=== PATIENT | female | born 1970 | race Caucasian/White ===

== ENCOUNTER 2018-03-18 18:27 | Inpatient (IN) | payer SELFPAY ==
[~2018-03-18] VITALS: Ht 149.9 cm; Wt 69.8 kg
[2018-03-18 18:38] VITALS: PULSE 108; RESP 18; TEMP 99.6; O2SAT 97
[2018-03-18 19:13] VITALS: TEMP 99.6
[2018-03-18 19:19] VITALS: BP 147/85; PULSE 100; RESP 16
[2018-03-18] MEDS ORDERED: AMPICILLIN-SULBACTAM INJ 3 GM in SODIUM CHLORIDE 0.9% INJ 100 ML IV ONE (19:30)
[2018-03-18] MEDS ORDERED: RABIES IMMUNE GLOBULIN INJ 300 UNITS/2 ML VIAL IM ONE (19:45)
[2018-03-18] MEDS ORDERED: RABIES VACCINE HUMAN DIPL CELL 2.5 UNITS/ML SYRINGE IM ONE (19:45)
[2018-03-18] MEDS ORDERED: MORPHINE SULFATE 4 MG/ML INJ IV PUSH ONE (19:45)
--- NOTE | 2018-03-18 19:46 | PD ---
HPI Chief Complaint: Bite or Sting Time Seen by Provider: 19:04 Travel History International Travel<30 days: No Contact w/Intl Traveler<30days: No History of Present Illness HPI pt was attacked by a feral cat 24 hrs ago and cat unknown to pt, possible bite as well as multiple scratch crocekr to her left anterior tib fib lower aspect , now cellulitis and swelling and pain . pt applied topical hydrogen peroxide and isopropyl alcohol at first and then topical bacitracin ointment without relieving the infectious process that has gotten worse over 24 hrs , tetanus is UP TO DATE, no on PO antibiotic , pain 10/10 when touched severe . PFSH Past Medical History Diminished Hearing: Yes (BILATERAL) ?: Not : 6 Para: 3 Miscarriage: 3 Tubal Ligation: Yes Past Surgical History Section: Yes (X2) Oral Surgery: Yes (WISDOM TEETH) Social History Alcohol Use: Yes (3 BEERS DAY) Tobacco Use: Yes (ONE PPD FOR 15 YEARS) Substance Use: Yes Allergies-Medications (Allergen,Severity, Reaction): Coded Allergies: latex (Verified Allergy, Intermediate, 03/18/18) Reported Meds & Prescriptions Reported Meds & Active Scripts Active Review of Systems Except as stated in HPI: all other systems reviewed are Neg Musculoskeletal: Positive: Myalgias, Arthralgias, Pain (redness swelling bite crocker to lower left tibial area 10 cm long x 5 cm wide) Physical Exam Narrative GENERAL: non toxic appearance but has uncomfortable pain appearance SKIN: bite and scratch crocker to anterior tib fib area,,,. EYES: Pupils equal and round. No scleral icterus. No injection or drainage. ENT: No nasal bleeding or discharge. Mucous membranes pink and moist. NECK: Trachea midline. No JVD. CARDIOVASCULAR: Regular rate and rhythm. RESPIRATORY: No accessory muscle use. Clear to auscultation. Breath sounds equal bilaterally. GASTROINTESTINAL: Abdomen soft, non-tender, nondistended. Hepatic and splenic margins not palpable. MUSCULOSKELETAL: Extremities lower left leg 10 cm x 6 cm with multiple scratch jeronimo eschars and few puncture r edema. No obvious deformities. NEUROLOGICAL: Awake and alert. No obvious cranial nerve deficits. Motor grossly within normal limits. Five out of 5 muscle strength in the arms and legs. Normal speech. PSYCHIATRIC: Appropriate mood and affect; insight and judgment normal. Data Data Last Documented VS Vital Signs Date Time Temp Pulse Resp B/P (MAP) Pulse Ox O2 Delivery O2 Flow Rate FiO2 03/18/18 19:19 100 16 147/85 (105) 03/18/18 19:13 99.6 03/18/18 18:38 97 Room Air Orders Orders Ampicillin-Sulbactam Inj (Unasyn Inj) (03/18/18 19:30) Complete Blood Count With Diff (03/18/18 19:26) Blood Culture (03/18/18 19:26) Comprehensive Metabolic Panel (03/18/18 19:26) Morphine Inj (Morphine Inj) (03/18/18 19:45) Rabies Immune Globulin Inj (Hyperrab S/D (03/18/18 20:00) Rabies Vaccine Chick Emb Inj (Rabavert I (03/18/18 21:00) Sodium Chlor 0.9% 1000 Ml Inj (Ns 1000 M (03/18/18 21:15) Hydromorphone Pf Inj (Dilaudid Pf Inj) (03/18/18 22:00) Lorazepam Inj (Ativan Inj) (03/18/18 22:00) Admit Order (Ed Use Only) (03/18/18 23:20) Labs Laboratory Tests Test 03/18/18 19:32 White Blood Count 13.6 TH/MM3 Red Blood Count 3.82 MIL/MM3 Hemoglobin 13.3 GM/DL Hematocrit 36.6 % Mean Corpuscular Volume 95.7 FL Mean Corpuscular Hemoglobin 34.8 PG Mean Corpuscular Hemoglobin Concent 36.4 % Red Cell Distribution Width 13.4 % Platelet Count 307 TH/MM3 Mean Platelet Volume 7.7 FL Neutrophils (%) (Auto) 75.0 % Lymphocytes (%) (Auto) 18.0 % Monocytes (%) (Auto) 5.2 % Eosinophils (%) (Auto) 0.7 % Basophils (%) (Auto) 1.1 % Neutrophils # (Auto) 10.2 TH/MM3 Lymphocytes # (Auto) 2.4 TH/MM3 Monocytes # (Auto) 0.7 TH/MM3 Eosinophils # (Auto) 0.1 TH/MM3 Basophils # (Auto) 0.1 TH/MM3 CBC Comment AUTO DIFF Differential Comment AUTO DIFF CONFIRMED Blood Urea Nitrogen 20 MG/DL Creatinine 0.96 MG/DL Random Glucose 131 MG/DL Total Protein 7.6 GM/DL Albumin 3.5 GM/DL Calcium Level 8.3 MG/DL Alkaline Phosphatase 64 U/L Aspartate Amino Transf (AST/SGOT) 77 U/L Alanine Aminotransferase (ALT/SGPT) 52 U/L Total Bilirubin 0.8 MG/DL Sodium Level 135 MEQ/L Potassium Level 4.3 MEQ/L Chloride Level 101 MEQ/L Carbon Dioxide Level 16.0 MEQ/L Anion Gap 18 MEQ/L Estimat Glomerular Filtration Rate 62 ML/MIN [facility] Medical Decision Making Medical Screen Exam Complete: Yes Emergency Medical Condition: Yes Differential Diagnosis cat scatch reaction vs cellulitis vs rabies exposure from feral cat that could have been exposed to raccoon or bat of skunk, unprovoked attack as per pt Narrative Course cellulitis spreading and not responding to topical antibiotics and possible rabies exposure from unknown feral cat, pt given IV Unasyn and rabies IgG active immunity around the scratch and bite crocker and rabies vaccine passive immunity , remainder of IgG IM in gluteal and deltiod opposite arm from Vaccination admit for continued cellulitis treatment IV Diagnosis Primary Impression: Cellulitis of leg, left Additional Impression: Cat bite involving extremity Admitting Information Admitting Physician Requests: Observation Singh Castro MD Mar 18, 2018 19:45
[2018-03-18 19:53] LABS: AUTOMATED NEUTROPHIL # 10.2 TH/MM3 (1.8-7.7); BASOPHIL # 0.1 TH/MM3 (0-0.2); BASOPHIL % 1.1 % (0.0-2.0); EOSINOPHIL # 0.1 TH/MM3 (0-0.4); EOSINOPHIL % 0.7 % (0.0-4.0); HEMATOCRIT 36.6 % (35.0-46.0); HEMOGLOBIN 13.3 GM/DL (11.6-15.3); LYMPHOCYTE # 2.4 TH/MM3 (1.0-4.8); MEAN CELL VOLUME 95.7 FL (80.0-100.0); MEAN CORPUSCULAR HEMOGLOBIN 34.8 PG (27.0-34.0); MEAN PLATELET VOLUME 7.7 FL (7.0-11.0); MONO % 5.2 % (0.0-8.0); MONOCYTE # 0.7 TH/MM3 (0-0.9); PLATELET COUNT 307 TH/MM3 (150-450); RED BLOOD COUNT 3.82 MIL/MM3 (4.00-5.30); RED CELL DISTRIBUTION WIDTH 13.4 % (11.6-17.2); WHITE BLOOD COUNT 13.6 TH/MM3 (4.0-11.0)
[2018-03-18] MEDS ORDERED: RABIES IMMUNE GLOBULIN INJ 1,500 UNITS/10 ML VIAL IM ONE (20:00)
[2018-03-18 20:07] LABS: MEAN CORPUSCULAR HGB CONC 36.4 % (32.0-36.0)
[2018-03-18 20:13] LABS: ALKALINE PHOSPHATASE 64 U/L (45-117); TOTAL BILIRUBIN ADULT 0.8 MG/DL (0.2-1.0)
[2018-03-18] MEDS ORDERED: RABIES VACCINE CHICK EMB INJ 2.5 UNITS/ML SYR IM ONE (21:00)
[2018-03-18 21:09] LABS: CHLORIDE 101 MEQ/L (98-107)
[2018-03-18 21:10] LABS: ALBUMIN 3.5 GM/DL (3.4-5.0); BLOOD UREA NITROGEN 20 MG/DL (7-18); CALCIUM 8.3 MG/DL (8.5-10.1); CREATININE 0.96 MG/DL (0.50-1.00); GLOMERULAR FILTRATION RATE 62 ML/MIN (>89); GLUCOSE,RANDOM 131 MG/DL (74-106); SODIUM (NA) 135 MEQ/L (136-145); TOTAL PROTEIN 7.6 GM/DL (6.4-8.2)
[2018-03-18] MEDS ORDERED: SODIUM CHLOR 0.9% 1000 ML INJ 1,000 ML IV ONE (21:15)
[2018-03-18 21:34] LABS: ALT (GPT) 52 U/L (10-53); AST (GOT) 77 U/L (15-37)
[2018-03-18] MEDS ORDERED: HYDROmorphone HCL PF 2 MG/ML VIAL IV PUSH ONE (22:00)
[2018-03-18] MEDS ORDERED: LORazepam 2 MG/ML VIAL IV PUSH ONE (22:00)
[2018-03-18] MEDS: SODIUM CHLOR 0.9% 1000 ML INJ 1,000 ML IV SCH (23:42)
[2018-03-18 23:44] VITALS: PULSE 102; RESP 16
[2018-03-18] MEDS ORDERED: ACETAMINOPHEN 325 MG TAB PO PRN (23:45)
[2018-03-18] MEDS ORDERED: SODIUM CHLORIDE 0.9% FLUSH 10 ML FLUSH IV FLUSH PRN (23:45)
[2018-03-18] MEDS ORDERED: ACETAMINOPHEN/HYDROcodone 325 MG/5 MG TAB PO PRN (23:45)
[2018-03-18] MEDS ORDERED: NALOXONE HCL 0.4 MG/ML AMP IV PUSH PRN (23:45)
[2018-03-19] MEDS ORDERED: LORazepam 2 MG/ML VIAL IV PUSH PRN ×4 (00:30)
[2018-03-19] MEDS ORDERED: FLUMAZENIL 0.5 MG/5 ML VIAL IV PUSH PRN (00:30)
[2018-03-19] MEDS ORDERED: LORazepam 2 MG TAB PO PRN (00:30)
[2018-03-19] MEDS ORDERED: LORazepam 1 MG TAB PO PRN (00:30)
--- NOTE | 2018-03-19 00:34 | HHI.HP ---
[facility] Service [facility] Primary Care Physician No Primary Care Physician Admission Diagnosis femi bite cellulitis treated for rabies exposure Diagnoses: Travel History International Travel<30 Days: No Contact w/Intl Traveler <30 Da: No History of Present Illness 47-year-old female with no significant past medical history presents to the emergency department for the evaluation of a cat bite. The patient reports approximately 8:30 PM on the night of 03/17 she was attacked by a feral cat. She reports the cat bit her and scratched her on her left lower extremity. She cleaned the wounds with soap and water and hydrogen peroxide and noticed minimal swelling that evening. The following day, the patient noticed that her leg was extremely swollen and exquisitely tender to touch. It is surrounded with erythema and there are multiple puncture wounds on the anterior portion of the left lower extremity. She denies any fever/chills. No chest pain or shortness of breath. No abdominal pain. No nausea/vomiting/diarrhea. Review of Systems Except as stated in HPI: all other systems reviewed are Neg Past Family Social History Past Medical History None Past Surgical History Right arm Right wrist 2 Reported Medications Reported Meds & Active Scripts Active Allergies: Coded Allergies: latex (Verified Allergy, Intermediate, 03/18/18) Family History Patient was adopted Social History Smokes approximately 1 pack per day. Drinks approximately 1/2 pint of alcohol daily. Denies illicit drugs. Physical Exam Vital Signs Vital Signs Date Time Temp Pulse Resp B/P (MAP) Pulse Ox O2 Delivery O2 Flow Rate FiO2 03/18/18 23:44 102 16 03/18/18 19:19 100 16 147/85 (105) 03/18/18 19:13 99.6 03/18/18 18:38 99.6 108 18 97 Room Air Physical Exam GENERAL: female lying in bed SKIN: Left lower extremity erythematous from ankle to knee with multiple puncture wounds present on the anterior aspect of the leg. No drainage noted. No areas of fluctuance. HEAD: Atraumatic. Normocephalic. No temporal or scalp tenderness. EYES: Pupils equal round and reactive. Extraocular motions intact. No scleral icterus. No injection or drainage. ENT: Nose without bleeding, purulent drainage or septal hematoma. Throat without erythema, tonsillar hypertrophy or exudate. Uvula midline. Airway patent. NECK: Trachea midline. No JVD or lymphadenopathy. Supple, nontender, no meningeal signs. CARDIOVASCULAR: Regular rate and rhythm without murmurs, gallops, or rubs. RESPIRATORY: Clear to auscultation. Breath sounds equal bilaterally. No wheezes , rales, or rhonchi. GASTROINTESTINAL: Abdomen soft, non-tender, nondistended. No hepato-splenomegaly , or palpable masses. No guarding. MUSCULOSKELETAL: Extremities without clubbing, cyanosis, or edema. No joint tenderness, effusion, or edema noted. No calf tenderness. NEUROLOGICAL: Awake and alert. Cranial nerves II through XII intact. Motor and sensory grossly within normal limits. Normal speech. Laboratory Laboratory Tests Test 03/18/18 19:32 White Blood Count 13.6 Red Blood Count 3.82 Hemoglobin 13.3 Hematocrit 36.6 Mean Corpuscular Volume 95.7 Mean Corpuscular Hemoglobin 34.8 Mean Corpuscular Hemoglobin Concent 36.4 Red Cell Distribution Width 13.4 Platelet Count 307 Mean Platelet Volume 7.7 Neutrophils (%) (Auto) 75.0 Lymphocytes (%) (Auto) 18.0 Monocytes (%) (Auto) 5.2 Eosinophils (%) (Auto) 0.7 Basophils (%) (Auto) 1.1 Neutrophils # (Auto) 10.2 Lymphocytes # (Auto) 2.4 Monocytes # (Auto) 0.7 Eosinophils # (Auto) 0.1 Basophils # (Auto) 0.1 CBC Comment AUTO DIFF Differential Comment AUTO DIFF CONFIRMED Blood Urea Nitrogen 20 Creatinine 0.96 Random Glucose 131 Total Protein 7.6 Albumin 3.5 Calcium Level 8.3 Alkaline Phosphatase 64 Aspartate Amino Transf (AST/SGOT) 77 Alanine Aminotransferase (ALT/SGPT) 52 Total Bilirubin 0.8 Sodium Level 135 Potassium Level 4.3 Chloride Level 101 Carbon Dioxide Level 16.0 Anion Gap 18 Estimat Glomerular Filtration Rate 62 Date/Time Source Procedure Growth Status 03/18/18 19:35 Blood Peripheral Aerobic Blood Culture Pending Received 03/18/18 19:35 Blood Peripheral Anaerobic Blood Culture Pending Received Result Diagram: 03/18/18193103/18/181931 Caprini VTE Risk Assessment Caprini VTE Risk Assessment: No/Low Risk (score <= 1) Caprini Risk Assessment Model Point Value = 1 Point Value = 2 Point Value = 3 Point Value = 5 Age 41-60 Minor surgery BMI > 25 kg/m2 Swollen legs Varicose veins or History of unexplained or recurrent spontaneous Oral contraceptives or hormone replacement Sepsis (< 1 month) Serious lung disease, including pneumonia (< 1 month) Abnormal pulmonary function Acute myocardial infarction Congestive heart failure (< 1 month) History of inflammatory bowel disease Medical patient at bed rest Age 61-74 Arthroscopic surgery Major open surgery (> 45 min) Laparoscopic surgery (> 45 min) Malignancy Confined to bed (> 72 hours) Immobilizing plaster cast Central venous access Age >= 75 History of VTE Family history of VTE Factor V Leiden Prothrombin [id number] Lupus anticoagulant Anticardiolipin antibodies Elevated serum homocysteine Heparin-induced thrombocytopenia Other congenital or acquired thrombophilia Stroke (< 1 month) Elective arthroplasty Hip, pelvis, or leg fracture Acute spinal cord injury (< 1 month) Prophylaxis Regimen Total Risk Factor Score Risk Level Prophylaxis Regimen 0-1 Low Early ambulation 2 Moderate Order ONE of the following: *Sequential Compression Device (SCD) *Heparin 5000 units SQ BID 3-4 Higher Order ONE of the following medications: *Heparin 5000 units SQ TID *Enoxaparin/Lovenox 40 mg SQ daily (WT < 150 kg, CrCl > 30 mL/min) *Enoxaparin/Lovenox 30 mg SQ daily (WT < 150 kg, CrCl > 10-29 mL/min) *Enoxaparin/Lovenox 30 mg SQ BID (WT < 150 kg, CrCl > 30 mL/min) AND/OR *Sequential Compression Device (SCD) 5 or more Highest Order ONE of the following medications: *Heparin 5000 units SQ TID (Preferred with Epidurals) *Enoxaparin/Lovenox 40 mg SQ daily (WT < 150 kg, CrCl > 30 mL/min) *Enoxaparin/Lovenox 30 mg SQ daily (WT < 150 kg, CrCl > 10-29 mL/min) *Enoxaparin/Lovenox 30 mg SQ BID (WT < 150 kg, CrCl > 30 mL/min) AND *Sequential Compression Device (SCD) Assessment and Plan Assessment and Plan Assessment/plan: 1. Cat bite Tetanus up-to-date Given rabies IgG and vaccine in the emergency department Patient will need repeat vaccine on day 3 Unasyn 2. Alcohol abuse Thiamine/folate/multivitamins CIWA protocol Monitor for signs of withdrawal FEN Heart healthy diet Electrolytes: Monitor and replete as needed Physician Certification 2 Midnight Certification Type: Admission for Inpatient Services Order for Inpatient Services The services are ordered in accordance with Medicare regulations or non- Medicare payer requirements, as applicable. In the case of services not specified as inpatient-only, they are appropriately provided as inpatient services in accordance with the 2-midnight benchmark. Estimated LOS (days): 2 2 days is the estimated time the patient will need to remain in the hospital, assuming treatment plan goals are met and no additional complications. Post-Hospital Plan: Not yet determined Maria Isabel Jackson MD Mar 19, 2018 00:34
[2018-03-19 01:20] VITALS: BP 115/58; PULSE 82; RESP 16; O2SAT 98
[2018-03-19] MEDS: AMPICILLIN-SULBACTAM INJ 3 GM in SODIUM CHLORIDE 0.9% INJ 100 ML IV SCH ×4 (01:31→20:43)
[2018-03-19 05:09] LABS: AUTOMATED NEUTROPHIL # 6.9 TH/MM3 (1.8-7.7); BASOPHIL % 0.4 % (0.0-2.0); EOSINOPHIL # 0.1 TH/MM3 (0-0.4); EOSINOPHIL % 1.2 % (0.0-4.0); HEMATOCRIT 33.9 % (35.0-46.0); HEMOGLOBIN 11.5 GM/DL (11.6-15.3); LYMPH % 22.7 % (9.0-44.0); LYMPHOCYTE # 2.2 TH/MM3 (1.0-4.8); MEAN CELL VOLUME 95.4 FL (80.0-100.0); MEAN CORPUSCULAR HEMOGLOBIN 32.4 PG (27.0-34.0); MEAN CORPUSCULAR HGB CONC 33.9 % (32.0-36.0); MEAN PLATELET VOLUME 7.2 FL (7.0-11.0); MONO % 3.9 % (0.0-8.0); MONOCYTE # 0.4 TH/MM3 (0-0.9); NEUT % 71.8 % (16.0-70.0); PLATELET COUNT 259 TH/MM3 (150-450); RED BLOOD COUNT 3.55 MIL/MM3 (4.00-5.30); RED CELL DISTRIBUTION WIDTH 13.5 % (11.6-17.2); WHITE BLOOD COUNT 9.6 TH/MM3 (4.0-11.0)
[2018-03-19 05:31] LABS: BICARBONATE 22.3 MEQ/L (21.0-32.0); CALCIUM 8.1 MG/DL (8.5-10.1); CREATININE 0.58 MG/DL (0.50-1.00)
[2018-03-19 06:34] VITALS: BP 107/55; PULSE 82; RESP 17; O2SAT 98
[2018-03-19] MEDS: FOLIC ACID 1 MG TAB PO SCH (07:48)
[2018-03-19] MEDS: SODIUM CHLORIDE 0.9% FLUSH 10 ML FLUSH IV FLUSH SCH ×2 (07:48→20:44)
[2018-03-19] MEDS: ACETAMINOPHEN/HYDROcodone 325 MG/10 MG TAB PO PRN ×4 (07:49→20:42)
[2018-03-19] MEDS: MULTIVITAMINS/MINERALS THERAPEUTIC TAB PO SCH (07:49)
[2018-03-19] MEDS: THIAMINE HCL 100 MG TAB PO SCH (07:49)
[2018-03-19 08:00] VITALS: BP 145/100; PULSE 81; RESP 21; TEMP 98.5; O2SAT 98
[2018-03-19] MEDS: SODIUM CHLOR 0.9% 1000 ML INJ 1,000 ML IV SCH ×2 (08:08→20:44)
[2018-03-19 12:00] VITALS: BP 136/70; PULSE 76; RESP 18; TEMP 98.6; O2SAT 97
[2018-03-19 16:00] VITALS: BP_SYST 133; BP_SYST 141; BP_DIAS 102; BP_DIAS 78; PULSE 75; PULSE 87; RESP 12; RESP 22; TEMP 98.3; TEMP 98.5; O2SAT 96; O2SAT 97
--- NOTE | 2018-03-19 17:59 | PD.ID.CON ---
History of Present Illness Service ID Consult Requested By Reason for Consult Evaluation and mment of Cat bite,scratch related left leg cellulitis and Post exposure prophylaxis. Primary Care Physician No Primary Care Physician Diagnoses: History of Present Illness is a 47 y/o CF with no significant past medical history presents to the emergency department for the evaluation of a cat bite. The patient reports approximately 8:30 PM on the night of 03/17 she was attacked by a feral cat. She reports the cat bit her and scratched her on her left lower extremity. She reports she was BBQing out on her patio when the cat approached her for food when she tried to shoo the cat away he got angry and clasped her with paws and bit her on left leg. She cleaned the wounds with soap and water and hydrogen peroxide and noticed minimal swelling that evening. The following day, the patient noticed that her leg was extremely swollen and exquisitely tender to touch. It is surrounded with erythema and there are multiple puncture wounds on the anterior portion of the left lower extremity. She denies any fever/ chills. No chest pain or shortness of breath. No abdominal pain. No nausea/ vomiting/diarrhea. Patient reports she was given an injection in each deltoid and also injections to infiltrate around her left leg wounds. Review of Systems ROS Limitations: Poor Historian Past Family Social History Allergies: Coded Allergies: latex (Verified Allergy, Intermediate, 03/18/18) Past Medical History None Past Surgical History Right arm surgery Right wrist surgery 2 Reported Medications Reported Meds & Active Scripts Active Active Ordered Medications Current Medications Medications (Trade) Dose Ordered Sig/Gladys Route Start Time Stop Time Status Last Admin Sodium Chloride 1,000 ml @ 100 mls/hr Q10H IV 03/18/18 23:32 03/20/18 05:32 (NS Flush) 2 ml UNSCH PRN IV FLUSH 03/18/18 23:45 (NS Flush) 2 ml BID IV FLUSH 03/19/18 09:00 03/19/18 20:44 (Tylenol) 650 mg Q4H PRN PO 03/18/18 23:45 (Narcan Inj) 0.4 mg UNSCH PRN IV PUSH 03/18/18 23:45 Ampicillin Sodium/ Sulbactam Sodium 3 gm/Sodium Chloride 100 ml @ 200 mls/hr Q6H IV 03/19/18 01:30 03/20/18 01:31 (Lyons 5-325 Mg) 1 tab Q4H PRN PO 03/18/18 23:45 03/19/18 02:38 (Lyons 10-325 Mg) 1 tab Q4H PRN PO 03/18/18 23:45 03/20/18 06:34 (Folate) 1 mg DAILY PO 03/19/18 09:00 03/24/18 08:59 03/19/18 07:48 (Vitamin B1) 100 mg DAILY PO 03/19/18 09:00 03/19/18 07:49 (Theragran M Tab) 1 tab DAILY PO 03/19/18 09:00 03/24/18 08:59 03/19/18 07:49 (Romazicon Inj) 0.2 mg Q1M PRN IV PUSH 03/19/18 00:30 (Ativan) 1 mg Q4H PRN PO 03/19/18 00:30 (Ativan Inj) 1 mg Q4H PRN IV PUSH 03/19/18 00:30 (Ativan) 2 mg Q2H PRN PO 03/19/18 00:30 (Ativan Inj) 2 mg Q2H PRN IV PUSH 03/19/18 00:30 (Ativan Inj) 2 mg Q1H PRN IV PUSH 03/19/18 00:30 (Ativan Inj) 2 mg Q15M PRN IV PUSH 03/19/18 00:30 Family History reviewed and NC Social History Smokes approximately 1 pack per day. Drinks approximately 1/2 pint of alcohol daily. Denies illicit drugs. Physical Exam Vital Signs Vital Signs Date Time Temp Pulse Resp B/P (MAP) Pulse Ox O2 Delivery O2 Flow Rate FiO2 03/19/18 16:00 98.5 87 12 133/78 (96) 97 03/19/18 12:00 98.6 76 18 136/70 (92) 97 03/19/18 08:00 98.5 81 21 145/100 (115) 98 03/19/18 06:34 82 17 107/55 (72) 98 Nasal Cannula 2.00 03/19/18 01:20 82 16 115/58 (77) 98 Nasal Cannula 2.00 03/18/18 23:44 102 16 03/18/18 19:19 100 16 147/85 (105) 03/18/18 19:13 99.6 03/18/18 18:38 99.6 108 18 97 Room Air Physical Exam GENERAL: This is a well-nourished, well-developed patient, in no apparent distress. SKIN: No rashes, ecchymoses or lesions. Cool and dry. HEAD: Atraumatic. Normocephalic. No temporal or scalp tenderness. EYES: Pupils equal round and reactive. Extraocular motions intact. No scleral icterus. No injection or drainage. ENT: Nose without bleeding, purulent drainage or septal hematoma. Throat without erythema, tonsillar hypertrophy or exudate. Uvula midline. Airway patent. NECK: Trachea midline. No JVD or lymphadenopathy. Supple, nontender, no meningeal signs. CARDIOVASCULAR: Regular rate and rhythm without murmurs, gallops, or rubs. RESPIRATORY: Clear to auscultation. Breath sounds equal bilaterally. No wheezes , rales, or rhonchi. GASTROINTESTINAL: Abdomen soft, non-tender, nondistended. No hepato-splenomegaly , or palpable masses. No guarding. MUSCULOSKELETAL: Left leg erythema, swelling, scratch and ? bite jeronimo. NEUROLOGICAL: Awake and alert. Cranial nerves II through XII intact. Motor and sensory grossly within normal limits. Five out of 5 muscle strength in all muscle groups. Normal speech. Pleasant cooperative pt. Laboratory Laboratory Tests Test 03/18/18 19:32 03/19/18 04:32 White Blood Count 13.6 9.6 Red Blood Count 3.82 3.55 Hemoglobin 13.3 11.5 Hematocrit 36.6 33.9 Mean Corpuscular Volume 95.7 95.4 Mean Corpuscular Hemoglobin 34.8 32.4 Mean Corpuscular Hemoglobin Concent 36.4 33.9 Red Cell Distribution Width 13.4 13.5 Platelet Count 307 259 Mean Platelet Volume 7.7 7.2 Neutrophils (%) (Auto) 75.0 71.8 Lymphocytes (%) (Auto) 18.0 22.7 Monocytes (%) (Auto) 5.2 3.9 Eosinophils (%) (Auto) 0.7 1.2 Basophils (%) (Auto) 1.1 0.4 Neutrophils # (Auto) 10.2 6.9 Lymphocytes # (Auto) 2.4 2.2 Monocytes # (Auto) 0.7 0.4 Eosinophils # (Auto) 0.1 0.1 Basophils # (Auto) 0.1 0.0 CBC Comment AUTO DIFF DIFF FINAL Differential Comment AUTO DIFF CONFIRMED Blood Urea Nitrogen 20 13 Creatinine 0.96 0.58 Random Glucose 131 107 Total Protein 7.6 Albumin 3.5 Calcium Level 8.3 8.1 Alkaline Phosphatase 64 Aspartate Amino Transf (AST/SGOT) 77 Alanine Aminotransferase (ALT/SGPT) 52 Total Bilirubin 0.8 Sodium Level 135 138 Potassium Level 4.3 3.6 Chloride Level 101 104 Carbon Dioxide Level 16.0 22.3 Anion Gap 18 12 Estimat Glomerular Filtration Rate 62 111 Date/Time Source Procedure Growth Status 03/18/18 19:35 Blood Peripheral Aerobic Blood Culture - Preliminary NO GROWTH IN 1 DAY Resulted 03/18/18 19:35 Blood Peripheral Anaerobic Blood Culture - Preliminary NO GROWTH IN 1 DAY Resulted Result Diagram: 03/19/18 0432 03/19/18 0432 Assessment and Plan Assessment and Plan Feral cat bite and scratches. High risk for rabies. Left leg cellulitis Recs Continue Unasyn IV Recd rabies vaccine and Immune globulin. Will determine with pharmacy company name brands so appropriate discharge regimen for vaccines can be planned through the health dept. Will follow along dw pt and RN Autumn Man MD Mar 19, 2018 17:59
[2018-03-19 20:00] VITALS: BP 152/78; PULSE 75; RESP 14; TEMP 98.4; O2SAT 98
[2018-03-19] MEDS ORDERED: IOHEXOL 350 MG/ML 10 ML VIAL (for RAD DIAG) IVCONTRAST ONE (21:34)
--- NOTE | 2018-03-19 21:37 | RADRPT ---
EXAM DATE: 03/19/2018 9:33 PM EDT AGE/SEX: 47 years / Female INDICATIONS: Left lower leg pain and swelling. Patient was attack by a feral cat 2 days ago. CLINICAL DATA: This is the patient's initial encounter. Patient reports that signs and symptoms have been present for 2 days and indicates a pain score of 10/10. MEDICAL/SURGICAL HISTORY: None. None. RADIATION DOSE: 7.12 CTDI (mGy) COMPARISON: None. TECHNIQUE: Multiple contiguous axial images were acquired using a multirow detector CT scanner af ter intravenous administration of 100 ml Omnipaque 350 (iohexol) nonionic water-soluble contrast as a single exam dose. Multiplanar reconstruction was performed in the sagittal and coronal planes. Us ing automated exposure control and adjustment of the mA and/or kV according to patient size, radiatio n dose was kept as low as reasonably achievable to obtain optimal diagnostic quality images. DICOM f ormat image data is available electronically for review and comparison. FINDINGS: Bones: The bony structures are intact. No fracture is seen. Joints: No significant arthropathy seen. Soft Tissues: Soft tissue swelling particularly along the medial malleolus no radiopaque foreign body . No soft tissue mass is seen. Other: No foreign bodies seen. Post Contrast: No abnormal areas of enhancement are seen in the marrow or soft tissues. CONCLUSION: 1. Soft tissue swelling particularly around the medial malleolus. No radiopaque foreign body observe d. Electronically signed by: Hayden العلي MD 03/19/2018 9:36 PM EDT
[2018-03-20] VITALS: BP 148/75; PULSE 83; RESP 14; TEMP 98.4; O2SAT 98
[2018-03-20] MEDS: ACETAMINOPHEN/HYDROcodone 325 MG/10 MG TAB PO PRN ×5 (01:31→20:26)
[2018-03-20] MEDS: AMPICILLIN-SULBACTAM INJ 3 GM in SODIUM CHLORIDE 0.9% INJ 100 ML IV SCH ×3 (01:31→13:46)
[2018-03-20 04:00] VITALS: BP 120/69; PULSE 70; RESP 12; TEMP 98.1; O2SAT 98
[2018-03-20] MEDS: SODIUM CHLOR 0.9% 1000 ML INJ 1,000 ML IV SCH ×2 (05:32→13:30)
[2018-03-20 08:00] VITALS: BP 143/67; PULSE 70; RESP 17; TEMP 98.1; O2SAT 97
[2018-03-20] MEDS: MULTIVITAMINS/MINERALS THERAPEUTIC TAB PO SCH (08:01)
[2018-03-20] MEDS: FOLIC ACID 1 MG TAB PO SCH (08:01)
[2018-03-20] MEDS: THIAMINE HCL 100 MG TAB PO SCH (08:01)
[2018-03-20] MEDS: SODIUM CHLORIDE 0.9% FLUSH 10 ML FLUSH IV FLUSH SCH ×2 (08:05→21:00)
[2018-03-20 12:00] VITALS: BP 119/58; PULSE 78; RESP 17; TEMP 98.3; O2SAT 96
[2018-03-20 16:05] VITALS: BP 120/68; TEMP 98
[2018-03-20] MEDS ORDERED: DOCUSATE SODIUM 50 MG/SENNA 8.6 MG TAB PO ONE (16:15)
[2018-03-20] MEDS ORDERED: MAGNESIUM HYDROXIDE SUSP 30 ML CUP PO ONE (16:15)
--- NOTE | 2018-03-20 16:23 | HHI.PR ---
Subjective Remarks Patient says she is feeling all right, however left leg pain continues, not improving. Objective Vital Signs Date Time Temp Pulse Resp B/P (MAP) Pulse Ox O2 Delivery O2 Flow Rate FiO2 03/20/18 16:05 98.0 120/68 (85) 03/20/18 12:00 98.3 78 17 119/58 (78) 96 03/20/18 08:00 98.1 70 17 143/67 (92) 97 03/20/18 04:00 98.1 70 12 120/69 (86) 98 03/20/18 00:00 98.4 83 14 148/75 (99) 98 03/19/18 20:00 98.4 75 14 152/78 (102) 98 I/O 03/19/18 03/19/18 03/19/18 03/20/18 03/20/18 03/20/18 07:00 15:00 23:00 07:00 15:00 23:00 Intake Total 650 ml 1040 ml Balance 650 ml 1040 ml Intake Oral 480 ml IV Total 650 ml 560 ml # Voids 5 Result Diagram: 03/19/18 0432 03/19/18 043 Objective Remarks GENERAL: She is lying in bed. Appears comfortable. SKIN: Warm and dry. HEAD: Normocephalic. EYES: No scleral icterus. No injection or drainage. NECK: Supple, trachea midline. No JVD. CARDIOVASCULAR: Regular rate and rhythm without murmurs, gallops, or rubs. RESPIRATORY: Breath sounds equal bilaterally. No accessory muscle use. GASTROINTESTINAL: Abdomen soft, non-tender, nondistended. MUSCULOSKELETAL: No cyanosis, or edema. Left leg with punctate lesions over the anterior riley, left foot. Very faint erythema, however edema of entire left leg. Patient able to dorsiflex left foot. BACK: Nontender without obvious deformity. No CVA tenderness. A/P Assessment and Plan // Cat bite Tetanus up-to-date Given rabies IgG and vaccine in the emergency department Patient will need repeat vaccine on day 3 Unasyn = Appreciate ID consult. ID to arrange rabies vaccine. Slightly worsening today. Discussed with ID. //Alcohol abuse Thiamine/folate/multivitamins [facility] protocol Monitor for signs of withdrawal Discharge Planning Pending clinical improvement. Bob Marquez MD Mar 20, 2018 16:23
[2018-03-20] MEDS ORDERED: ASP: Other exception documentation: ( ) PRN (17:00)
[2018-03-20] MEDS ORDERED: PHARMACY INFORMATION XX PRN (17:00)
--- NOTE | 2018-03-20 17:06 | HHI.IDPN ---
Subjective Subjective Remarks is a 47 y/o CF with no significant past medical history presents to the emergency department for the evaluation of a cat bite. The patient reports approximately 8:30 PM on the night of 03/17 she was attacked by a feral cat. She reports the cat bit her and scratched her on her left lower extremity. She reports she was BBQing out on her patio when the cat approached her for food when she tried to shoo the cat away he got angry and clasped her with paws and bit her on left leg. She cleaned the wounds with soap and water and hydrogen peroxide and noticed minimal swelling that evening. The following day, the patient noticed that her leg was extremely swollen and exquisitely tender to touch. It is surrounded with erythema and there are multiple puncture wounds on the anterior portion of the left lower extremity. She denies any fever/ chills. No chest pain or shortness of breath. No abdominal pain. No nausea/ vomiting/diarrhea. Patient reports she was given an injection in each deltoid and also injections to infiltrate around her left leg wounds. Overnight events reviewed No fevers no rash No diarrhea Reports worsening left leg pain and swelling despite elevation of leg. Also reports feeling of scratchiness and worms. 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 Antibiotics Unasyn IV Lines Lines ok Past Medical History reviewed Allergies: Coded Allergies: latex (Verified Allergy, Intermediate, 03/18/18) Objective . Vital Signs Date Time Temp Pulse Resp B/P (MAP) Pulse Ox O2 Delivery O2 Flow Rate FiO2 03/20/18 16:05 98.0 120/68 (85) 03/20/18 12:00 98.3 78 17 119/58 (78) 96 03/20/18 08:00 98.1 70 17 143/67 (92) 97 03/20/18 04:00 98.1 70 12 120/69 (86) 98 03/20/18 00:00 98.4 83 14 148/75 (99) 98 03/19/18 20:00 98.4 75 14 152/78 (102) 98 . Laboratory Tests Test 03/18/18 19:32 03/19/18 04:32 White Blood Count 13.6 TH/MM3 9.6 TH/MM3 Red Blood Count 3.82 MIL/MM3 3.55 MIL/MM3 Hemoglobin 13.3 GM/DL 11.5 GM/DL Hematocrit 36.6 % 33.9 % Mean Corpuscular Volume 95.7 FL 95.4 FL Mean Corpuscular Hemoglobin 34.8 PG 32.4 PG Mean Corpuscular Hemoglobin Concent 36.4 % 33.9 % Red Cell Distribution Width 13.4 % 13.5 % Platelet Count 307 TH/MM3 259 TH/MM3 Mean Platelet Volume 7.7 FL 7.2 FL Neutrophils (%) (Auto) 75.0 % 71.8 % Lymphocytes (%) (Auto) 18.0 % 22.7 % Monocytes (%) (Auto) 5.2 % 3.9 % Eosinophils (%) (Auto) 0.7 % 1.2 % Basophils (%) (Auto) 1.1 % 0.4 % Neutrophils # (Auto) 10.2 TH/MM3 6.9 TH/MM3 Lymphocytes # (Auto) 2.4 TH/MM3 2.2 TH/MM3 Monocytes # (Auto) 0.7 TH/MM3 0.4 TH/MM3 Eosinophils # (Auto) 0.1 TH/MM3 0.1 TH/MM3 Basophils # (Auto) 0.1 TH/MM3 0.0 TH/MM3 CBC Comment AUTO DIFF DIFF FINAL Differential Comment AUTO DIFF CONFIRMED Laboratory Tests Test 03/18/18 19:32 03/19/18 04:32 Blood Urea Nitrogen 20 MG/DL 13 MG/DL Creatinine 0.96 MG/DL 0.58 MG/DL Random Glucose 131 MG/DL 107 MG/DL Total Protein 7.6 GM/DL Albumin 3.5 GM/DL Calcium Level 8.3 MG/DL 8.1 MG/DL Alkaline Phosphatase 64 U/L Aspartate Amino Transf (AST/SGOT) 77 U/L Alanine Aminotransferase (ALT/SGPT) 52 U/L Total Bilirubin 0.8 MG/DL Sodium Level 135 MEQ/L 138 MEQ/L Potassium Level 4.3 MEQ/L 3.6 MEQ/L Chloride Level 101 MEQ/L 104 MEQ/L Carbon Dioxide Level 16.0 MEQ/L 22.3 MEQ/L Anion Gap 18 MEQ/L 12 MEQ/L Estimat Glomerular Filtration Rate 62 ML/MIN 111 ML/MIN Microbiology Date/Time Source Procedure Growth Status 03/18/18 19:35 Blood Peripheral Aerobic Blood Culture - Preliminary NO GROWTH IN 2 DAYS Resulted 03/18/18 19:35 Blood Peripheral Anaerobic Blood Culture - Preliminary NO GROWTH IN 2 DAYS Resulted 03/18/18 19:30 Blood Peripheral Aerobic Blood Culture - Preliminary NO GROWTH IN 2 DAYS Resulted 03/18/18 19:30 Blood Peripheral Anaerobic Blood Culture - Preliminary NO GROWTH IN 2 DAYS Resulted Imaging Last Impressions Lower Extremity CT 03/19/18 0000 Signed Impressions: CONCLUSION: 1. Soft tissue swelling particularly around the medial malleolus. No radiopaqu e foreign body observed. Physical Exam GENERAL: This is a well-nourished, well-developed patient, in no apparent distress. SKIN: No rashes, ecchymoses or lesions. Cool and dry. HEAD: Atraumatic. Normocephalic. No temporal or scalp tenderness. EYES: Pupils equal round and reactive. Extraocular motions intact. No scleral icterus. No injection or drainage. ENT: Nose without bleeding, purulent drainage or septal hematoma. Throat without erythema, tonsillar hypertrophy or exudate. Uvula midline. Airway patent. NECK: Trachea midline. No JVD or lymphadenopathy. Supple, nontender, no meningeal signs. CARDIOVASCULAR: Regular rate and rhythm without murmurs, gallops, or rubs. RESPIRATORY: Clear to auscultation. Breath sounds equal bilaterally. No wheezes , rales, or rhonchi. GASTROINTESTINAL: Abdomen soft, non-tender, nondistended. No hepato-splenomegaly , or palpable masses. No guarding. MUSCULOSKELETAL: Left leg erythema, swelling, scratch and ? bite jeronimo. More induration and swelling now extending to medial aspect of left knee. NEUROLOGICAL: Awake and alert. Cranial nerves II through XII intact. Motor and sensory grossly within normal limits. Five out of 5 muscle strength in all muscle groups. Normal speech. Pleasant cooperative pt. Assessment & Plan Remarks Feral cat bite and scratches. High risk for rabies. Left leg cellulitis Patient has concern for generalized parasite and worm infection/infestation. No eosinophilia. Recs DC Unasyn IV Start Meropenem IV (ASP: non response to Unasyn IV for cat bite) Start Vanco IV for possible MRSA super infection. Recd rabies vaccine and Immune globulin. Will determine with pharmacy company name brands so appropriate discharge regimen for vaccines can be planned through the health dept. Stool O/P Peripheral smear to look for parasites. Will follow along dw pt and Autumn Brody MD Mar 20, 2018 17:06
[2018-03-20] MEDS ORDERED: Vancomycin Consult Pharmacy 1 EA OTHER SCH (17:15)
[2018-03-20 17:58] LABS: AUTOMATED NEUTROPHIL # 5.2 TH/MM3 (1.8-7.7); BASOPHIL % 0.5 % (0.0-2.0); EOSINOPHIL # 0.2 TH/MM3 (0-0.4); EOSINOPHIL % 2.8 % (0.0-4.0); HEMATOCRIT 34.1 % (35.0-46.0); HEMOGLOBIN 11.6 GM/DL (11.6-15.3); LYMPH % 19.8 % (9.0-44.0); LYMPHOCYTE # 1.5 TH/MM3 (1.0-4.8); MEAN CELL VOLUME 95.1 FL (80.0-100.0); MEAN CORPUSCULAR HEMOGLOBIN 32.3 PG (27.0-34.0); MEAN PLATELET VOLUME 7.4 FL (7.0-11.0); MONO % 6.8 % (0.0-8.0); MONOCYTE # 0.5 TH/MM3 (0-0.9); NEUT % 70.1 % (16.0-70.0); PLATELET COUNT 249 TH/MM3 (150-450); RED BLOOD COUNT 3.59 MIL/MM3 (4.00-5.30); RED CELL DISTRIBUTION WIDTH 13.5 % (11.6-17.2); WHITE BLOOD COUNT 7.3 TH/MM3 (4.0-11.0)
[2018-03-20] MEDS ORDERED: VANCOMYCIN INJ 1,250 MG in SODIUM CHLOR 0.9% 250 ML INJ 250 ML IV ONE (18:00)
[2018-03-20 18:30] LABS: BICARBONATE 28.3 MEQ/L (21.0-32.0); CREATININE 0.73 MG/DL (0.50-1.00)
[2018-03-20] MEDS: MEROPENEM INJ 500 MG in SODIUM CHLORIDE 0.9% INJ 100 ML IV SCH (18:30)
[2018-03-20 21:45] VITALS: BP 140/75; PULSE 77; RESP 17; TEMP 98.6; O2SAT 96
[2018-03-21] VITALS: BP 126/72; PULSE 66; RESP 16; TEMP 98; O2SAT 96
[2018-03-21] MEDS: ACETAMINOPHEN/HYDROcodone 325 MG/10 MG TAB PO PRN ×6 (01:29→23:04)
[2018-03-21] MEDS: MEROPENEM INJ 500 MG in SODIUM CHLORIDE 0.9% INJ 100 ML IV SCH ×3 (01:29→18:14)
[2018-03-21 04:40] VITALS: BP 125/65; PULSE 74; RESP 18; TEMP 98; O2SAT 97
[2018-03-21 08:37] VITALS: BP 137/73; PULSE 71; RESP 18; TEMP 98.1; O2SAT 96
[2018-03-21] MEDS: MULTIVITAMINS/MINERALS THERAPEUTIC TAB PO SCH (09:00)
[2018-03-21] MEDS: THIAMINE HCL 100 MG TAB PO SCH (09:00)
[2018-03-21] MEDS: FOLIC ACID 1 MG TAB PO SCH (09:00)
[2018-03-21] MEDS: SODIUM CHLORIDE 0.9% FLUSH 10 ML FLUSH IV FLUSH SCH ×2 (09:01→23:10)
[2018-03-21 11:43] VITALS: BP 117/64; PULSE 73; RESP 18; TEMP 98.3; O2SAT 96
[2018-03-21] MEDS ORDERED: VANCOMYCIN INJ 1,250 MG in SODIUM CHLOR 0.9% 250 ML INJ 250 ML IV SCH (12:00)
--- NOTE | 2018-03-21 13:06 | HHI.PR ---
Subjective Remarks Follow-up cat bite and scratch March 21, 2018-patient seen and examined, denies any significant left lower extremity pain. Currently afebrile. Patient has a lot of concerns regarding possible worm infestation Objective Vitals Vital Signs Date Time Temp Pulse Resp B/P (MAP) Pulse Ox O2 Delivery O2 Flow Rate FiO2 03/21/18 11:43 98.3 73 18 117/64 (81) 96 03/21/18 08:37 98.1 71 18 137/73 (94) 96 03/21/18 04:40 98.0 74 18 125/65 (85) 97 03/21/18 00:00 98.0 66 16 126/72 (90) 96 03/20/18 21:45 98.6 77 17 140/75 (96) 96 03/20/18 16:05 98.0 120/68 (85) I/O 03/20/18 03/20/18 03/20/18 03/21/18 03/21/18 03/21/18 07:00 15:00 23:00 07:00 15:00 23:00 Intake Total 1040 ml 1960 ml 825 ml 100 ml Balance 1040 ml 1960 ml 825 ml 100 ml Intake Oral 480 ml 1960 ml 825 ml IV Total 560 ml 100 ml # Voids 5 6 3 # Bowel Movements 0 0 Result Diagram: 03/20/18 1740 03/20/18 1740 Imaging Last Impressions Lower Extremity CT 03/19/18 0000 Signed Impressions: CONCLUSION: 1. Soft tissue swelling particularly around the medial malleolus. No radiopaqu e foreign body observed. Objective Remarks GENERAL: NAD SKIN: Warm and dry. HEAD: Normocephalic. EYES: No scleral icterus. No injection or drainage. NECK: Supple, trachea midline. No JVD or lymphadenopathy. CARDIOVASCULAR: Regular rate and rhythm without murmurs, gallops, or rubs. RESPIRATORY: Breath sounds equal bilaterally. No accessory muscle use. GASTROINTESTINAL: Abdomen soft, non-tender, nondistended. MUSCULOSKELETAL: No cyanosis, or edema. LLE with punctures wound with surrounding erythema; TTP BACK: Nontender without obvious deformity. No CVA tenderness. A/P Problem List: (1) Cat bite involving extremity (2) Worm infestation ICD Code: B83.9 - Helminthiasis, unspecified (3) Worms in stool ICD Code: B83.9 - Helminthiasis, unspecified (4) Cellulitis of leg, left ICD Code: L03.116 - Cellulitis of left lower limb Assessment and Plan 47-year-old female with Cat scratch disease from feral cat Cellulitis left lower extremity Currently on meropenem and vancomycin per ID pending culture reports Warm manifestation? Stool for ova and parasite pending Peripheral smear to look for parasites pending Alcohol abuse Continue with CIWA protocol, rally pack DVT prophylaxis: Heparin Alvin Moore MD Mar 21, 2018 13:06
[2018-03-21] MEDS ORDERED: RABIES VACCINE CHICK EMB INJ 2.5 UNITS/ML SYR IM ONE (19:15)
--- NOTE | 2018-03-21 19:45 | HHI.IDPN ---
Subjective Subjective Remarks is a 47 y/o CF with no significant past medical history presents to the emergency department for the evaluation of a cat bite. The patient reports approximately 8:30 PM on the night of 03/17 she was attacked by a feral cat. She reports the cat bit her and scratched her on her left lower extremity. She reports she was BBQing out on her patio when the cat approached her for food when she tried to shoo the cat away he got angry and clasped her with paws and bit her on left leg. She cleaned the wounds with soap and water and hydrogen peroxide and noticed minimal swelling that evening. The following day, the patient noticed that her leg was extremely swollen and exquisitely tender to touch. It is surrounded with erythema and there are multiple puncture wounds on the anterior portion of the left lower extremity. She denies any fever/ chills. No chest pain or shortness of breath. No abdominal pain. No nausea/ vomiting/diarrhea. Patient reports she was given an injection in each deltoid and also injections to infiltrate around her left leg wounds. Overnight events reviewed No fevers no rash No diarrhea Reports left leg is better less swelling and erythema. Also reports feeling of scratchiness and worms. 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 Antibiotics Meropenem IV Vanco IV Lines Lines ok Past Medical History reviewed Allergies: Coded Allergies: latex (Verified Allergy, Intermediate, 03/18/18) Objective . Vital Signs Date Time Temp Pulse Resp B/P (MAP) Pulse Ox O2 Delivery O2 Flow Rate FiO2 03/21/18 11:43 98.3 73 18 117/64 (81) 96 03/21/18 08:37 98.1 71 18 137/73 (94) 96 03/21/18 04:40 98.0 74 18 125/65 (85) 97 03/21/18 00:00 98.0 66 16 126/72 (90) 96 03/20/18 21:45 98.6 77 17 140/75 (96) 96 03/21/18 03/21/18 03/22/18 15:00 23:00 07:00 Intake Total 100 ml 350 ml Balance 100 ml 350 ml IV Total 100 ml 350 ml # Voids 3 # Bowel Movements 1 . Laboratory Tests Test 03/20/18 17:40 White Blood Count 7.3 TH/MM3 Red Blood Count 3.59 MIL/MM3 Hemoglobin 11.6 GM/DL Hematocrit 34.1 % Mean Corpuscular Volume 95.1 FL Mean Corpuscular Hemoglobin 32.3 PG Mean Corpuscular Hemoglobin Concent 34.0 % Red Cell Distribution Width 13.5 % Platelet Count 249 TH/MM3 Mean Platelet Volume 7.4 FL Neutrophils (%) (Auto) 70.1 % Lymphocytes (%) (Auto) 19.8 % Monocytes (%) (Auto) 6.8 % Eosinophils (%) (Auto) 2.8 % Basophils (%) (Auto) 0.5 % Neutrophils # (Auto) 5.2 TH/MM3 Lymphocytes # (Auto) 1.5 TH/MM3 Monocytes # (Auto) 0.5 TH/MM3 Eosinophils # (Auto) 0.2 TH/MM3 Basophils # (Auto) 0.0 TH/MM3 CBC Comment DIFF FINAL Differential Comment Blood Smear Pathologist Review Laboratory Tests Test 03/20/18 17:40 Blood Urea Nitrogen 9 MG/DL Creatinine 0.73 MG/DL Random Glucose 100 MG/DL Calcium Level 9.0 MG/DL Sodium Level 136 MEQ/L Potassium Level 3.9 MEQ/L Chloride Level 101 MEQ/L Carbon Dioxide Level 28.3 MEQ/L Anion Gap 7 MEQ/L Estimat Glomerular Filtration Rate 85 ML/MIN C-Reactive Protein 8.10 MG/DL Microbiology Date/Time Source Procedure Growth Status 03/21/18 14:39 Stool Stool Cyclospora Exam Pending Received 03/21/18 14:39 Stool Stool Cryptosporidium Exam Pending Received 03/21/18 14:39 Stool Stool Stool Pus (DUSTIN) Pending Received 03/21/18 14:39 Stool Stool Giardia Antigen (DUSTIN) Pending Received Imaging Last Impressions Lower Extremity CT 03/19/18 0000 Signed Impressions: CONCLUSION: 1. Soft tissue swelling particularly around the medial malleolus. No radiopaqu e foreign body observed. Physical Exam GENERAL: This is a well-nourished, well-developed patient, in no apparent distress. SKIN: No rashes, ecchymoses or lesions. Cool and dry. HEAD: Atraumatic. Normocephalic. No temporal or scalp tenderness. EYES: Pupils equal round and reactive. Extraocular motions intact. No scleral icterus. No injection or drainage. ENT: Nose without bleeding, purulent drainage or septal hematoma. Throat without erythema, tonsillar hypertrophy or exudate. Uvula midline. Airway patent. NECK: Trachea midline. No JVD or lymphadenopathy. Supple, nontender, no meningeal signs. CARDIOVASCULAR: Regular rate and rhythm without murmurs, gallops, or rubs. RESPIRATORY: Clear to auscultation. Breath sounds equal bilaterally. No wheezes , rales, or rhonchi. GASTROINTESTINAL: Abdomen soft, non-tender, nondistended. No hepato-splenomegaly , or palpable masses. No guarding. MUSCULOSKELETAL: Left leg erythema, swelling, scratch and ? bite jeronimo. More induration and swelling now extending to medial aspect of left knee. NEUROLOGICAL: Awake and alert. Cranial nerves II through XII intact. Motor and sensory grossly within normal limits. Five out of 5 muscle strength in all muscle groups. Normal speech. Pleasant cooperative pt. Assessment & Plan Remarks Feral cat bite and scratches. High risk for rabies. Left leg cellulitis Patient has concern for generalized parasite and worm infection/infestation. No eosinophilia. Recs Continue Meropenem IV (ASP: non response to Unasyn IV for cat bite) Continue Vanco IV for possible MRSA super infection. Rabies vaccine ordered for today (day 3) and day 7. Explained to patient the schedule needs to completed outpatient at health dept post discharge. Will request [employer] to help out. No peripheral smear eosinophilia. Stool studies pending. Peripheral smear to look for parasites pending. Patient seems a little preoccupied with fear of worm and parasite infestation. She reports she has a worm crawling in her throat. On exam NAD. From ID perspective I cannot offer any more workup for parasite infestation but certainly primary team can use their own discretion if patient agrees to get specialties such as GI, ENT and Pulm involved if deemed necessary. Consider outpatient psych consult for OCD if all workup negative. No self harm from her preoccupation at present time other than requesting additional workup. will follow along. dw pt and RN Will follow next on Friday. If any changes in the interim please call me sooner. Autumn Man MD Mar 21, 2018 19:45
[2018-03-21 20:00] VITALS: BP 113/63; PULSE 65; RESP 18; TEMP 98.5; O2SAT 95
[2018-03-21] MEDS: VANCOMYCIN 1,000 MG/NS 250 ML IV SCH ×2 (23:04)
[2018-03-21] MEDS: HEPARIN SODIUM - SQ 10,000 UNITS/ML VIAL SQ SCH (23:10)
[2018-03-22] VITALS: BP 137/64; PULSE 77; RESP 18; TEMP 98; O2SAT 95
[2018-03-22] MEDS: MEROPENEM INJ 500 MG in SODIUM CHLORIDE 0.9% INJ 100 ML IV SCH ×3 (02:21→18:01)
[2018-03-22] MEDS: ACETAMINOPHEN/HYDROcodone 325 MG/10 MG TAB PO PRN ×5 (03:05→20:58)
[2018-03-22 04:00] VITALS: BP 147/65; PULSE 74; RESP 18; TEMP 98; O2SAT 95
[2018-03-22] MEDS ORDERED: RABIES VACCINE CHICK EMB INJ 2.5 UNITS/ML SYR IM ONE (07:45)
[2018-03-22 08:48] LABS: CREATININE 0.53 MG/DL (0.50-1.00)
[2018-03-22 08:53] VITALS: BP 135/66; PULSE 67; RESP 18; TEMP 97.7; O2SAT 97
--- NOTE | 2018-03-22 10:00 | HHI.PR ---
Subjective Remarks patient feeling better pain improved afebrile Objective Vitals Vital Signs Date Time Temp Pulse Resp B/P (MAP) Pulse Ox O2 Delivery O2 Flow Rate FiO2 03/22/18 08:53 97.7 67 18 135/66 (89) 97 03/22/18 04:12 18 03/22/18 04:00 98.0 74 18 147/65 (92) 95 03/22/18 00:00 98.0 77 18 137/64 (88) 95 03/21/18 20:00 98.5 65 18 113/63 (80) 95 03/21/18 11:43 98.3 73 18 117/64 (81) 96 I/O 03/21/18 03/21/18 03/21/18 03/22/18 03/22/18 03/22/18 07:00 15:00 23:00 07:00 15:00 23:00 Intake Total 825 ml 100 ml 350 ml 350 ml Balance 825 ml 100 ml 350 ml 350 ml Intake Oral 825 ml IV Total 100 ml 350 ml 350 ml # Voids 3 3 4 # Bowel Movements 0 1 Result Diagram: 03/20/18 1740 03/22/18 0657 Imaging Last Impressions Lower Extremity CT 03/19/18 0000 Signed Impressions: CONCLUSION: 1. Soft tissue swelling particularly around the medial malleolus. No radiopaqu e foreign body observed. Objective Remarks awake and alert, no acute distress, afebrile anicteric lungs- no rales regular rhythm abdomen soft right LE- mild erythema, some superficial scratch crocker, no active drainage, no induration - per patient markedly improve from admission good peripheral pulses A/P Problem List: (1) Cat bite involving extremity (2) Worm infestation ICD Code: B83.9 - Helminthiasis, unspecified (3) Worms in stool ICD Code: B83.9 - Helminthiasis, unspecified (4) Cellulitis of leg, left ICD Code: L03.116 - Cellulitis of left lower limb Assessment and Plan 47-year-old female with Feral cath bite with Cellulitis left lower extremity- clinically improving Currently on meropenem and vancomycin per ID pending culture reports- negative so far rabies vaccine shots- scheduled doses per ID recommendation ? Worm manifestation patient has no complains- no diarrhea- good po Stool for ova and parasite pending Peripheral smear to look for parasites pending Alcohol abuse Continue with WA protocol, rally pack DVT prophylaxis: Heparin d/w patient- worried about DC meds/needs- assured her that we will ask CM assistance when cleared by ID for DC to assist with meds Mamadou Vincent MD Mar 22, 2018 10:00
[2018-03-22] MEDS: THIAMINE HCL 100 MG TAB PO SCH (10:14)
[2018-03-22] MEDS: HEPARIN SODIUM - SQ 10,000 UNITS/ML VIAL SQ SCH ×2 (10:14→20:57)
[2018-03-22] MEDS: MULTIVITAMINS/MINERALS THERAPEUTIC TAB PO SCH (10:15)
[2018-03-22] MEDS: FOLIC ACID 1 MG TAB PO SCH (10:15)
[2018-03-22] MEDS: SODIUM CHLORIDE 0.9% FLUSH 10 ML FLUSH IV FLUSH SCH ×2 (10:17→20:59)
[2018-03-22] MEDS: VANCOMYCIN 1,000 MG/NS 250 ML IV SCH ×2 (11:25)
[2018-03-22 12:35] VITALS: BP 136/78; PULSE 68; RESP 18; TEMP 98.7; O2SAT 96
[2018-03-22 16:30] VITALS: BP 119/76; PULSE 81; RESP 18; TEMP 98.2; O2SAT 96
[2018-03-22 20:00] VITALS: BP 124/76; PULSE 77; RESP 18; TEMP 99.2; O2SAT 95
[2018-03-22] MEDS ORDERED: PHARMACY ORDERED LAB ONE (23:45)
[2018-03-23] VITALS: BP 165/98; PULSE 82; RESP 18; TEMP 98; O2SAT 96
[2018-03-23] MEDS: VANCOMYCIN 1,000 MG/NS 250 ML IV SCH ×2 (00:29)
[2018-03-23] MEDS: ACETAMINOPHEN/HYDROcodone 325 MG/10 MG TAB PO PRN ×6 (00:42→23:00)
[2018-03-23 01:00] VITALS: BP 128/74; PULSE 81; RESP 18; TEMP 98.1; O2SAT 97
[2018-03-23] MEDS: MEROPENEM INJ 500 MG in SODIUM CHLORIDE 0.9% INJ 100 ML IV SCH ×3 (01:35→18:23)
[2018-03-23 04:00] VITALS: BP_SYST 113; BP_SYST 134; BP_DIAS 66; BP_DIAS 68; PULSE 66; RESP 18; TEMP 98; O2SAT 97
[2018-03-23 08:00] VITALS: BP 116/69; PULSE 71; RESP 16; TEMP 98.2; O2SAT 96
[2018-03-23] MEDS: SODIUM CHLORIDE 0.9% FLUSH 10 ML FLUSH IV FLUSH SCH ×2 (09:00→23:01)
--- NOTE | 2018-03-23 09:57 | HHI.PR ---
Subjective Remarks afebrile, po 100% - "good food" states leg feeling better- on prn pain meds no complains of abdominal pain, nausea or vomiting or diarrhea Objective Vitals Vital Signs Date Time Temp Pulse Resp B/P (MAP) Pulse Ox O2 Delivery O2 Flow Rate FiO2 03/23/18 06:36 18 03/23/18 04:00 98.0 66 18 113/68 (83) 97 03/23/18 01:00 98.1 81 18 128/74 (92) 97 03/23/18 00:00 98.0 82 18 165/98 (120) 96 03/22/18 20:00 99.2 77 18 124/76 (92) 95 03/22/18 16:30 98.2 81 18 119/76 (90) 96 03/22/18 12:35 98.7 68 18 136/78 (97) 96 I/O 03/22/18 03/22/18 03/22/18 03/23/18 03/23/18 03/23/18 07:00 15:00 23:00 07:00 15:00 23:00 Intake Total 350 ml 350 ml 250 ml Balance 350 ml 350 ml 250 ml IV Total 350 ml 350 ml 250 ml # Voids 4 3 Result Diagram: 03/20/18 1740 03/22/18 0657 Imaging Last Impressions Lower Extremity CT 03/19/18 0000 Signed Impressions: CONCLUSION: 1. Soft tissue swelling particularly around the medial malleolus. No radiopaqu e foreign body observed. Objective Remarks awake and alert, no acute distress, afebrile anicteric lungs- no rales regular rhythm abdomen soft right LE- erythema much improved , some superficial scratch crocker, no active drainage, swelling around scratched crocker improved good peripheral pulses, no calf swelling or tenderness A/P Problem List: (1) Cat bite involving extremity (2) Worm infestation ICD Code: B83.9 - Helminthiasis, unspecified (3) Worms in stool ICD Code: B83.9 - Helminthiasis, unspecified (4) Cellulitis of leg, left ICD Code: L03.116 - Cellulitis of left lower limb Assessment and Plan 47-year-old female with Feral cath bite with Cellulitis left lower extremity- clinically improving Currently on meropenem and vancomycin per ID pending culture reports- negative so far rabies vaccine shots- scheduled doses per ID recommendation day 7 dose- due - Worm manifestation + stool eosinophilia patient has no complains- no diarrhea- good po Stool for ova and parasite pending- no growth so far GI work up - colonoscopy- can be done as OP Alcohol abuse- counselled Continue with CIWA protocol, rally pack DVT prophylaxis: Heparin d/w patient- worried about DC meds/needs- assured her that we will ask CM assistance when cleared by ID for DC to assist with meds Mamadou Vincent MD Mar 23, 2018 09:57
[2018-03-23] MEDS: FOLIC ACID 1 MG TAB PO SCH (10:29)
[2018-03-23] MEDS: MULTIVITAMINS/MINERALS THERAPEUTIC TAB PO SCH (10:29)
[2018-03-23] MEDS: HEPARIN SODIUM - SQ 10,000 UNITS/ML VIAL SQ SCH ×2 (10:31→23:04)
[2018-03-23 12:00] VITALS: BP 160/79; PULSE 68; RESP 18; TEMP 98.9; O2SAT 94
[2018-03-23] MEDS: VANCOMYCIN INJ 1,250 MG in SODIUM CHLOR 0.9% 250 ML INJ 250 ML IV SCH (14:51)
[2018-03-23 16:00] VITALS: BP 116/55; PULSE 69; RESP 16; TEMP 98.5; O2SAT 95
[2018-03-23] MEDS ORDERED: ERTAPENEM SODIUM 1000 MG VIAL IV SCH (21:00)
[2018-03-23] MEDS ORDERED: ERTAPENEM 1,000 MG/NS 100 ML IV SCH ×2 (22:00)
[2018-03-24 00:20] VITALS: BP 129/72; PULSE 79; RESP 18; TEMP 98.4; O2SAT 96
[2018-03-24] MEDS: VANCOMYCIN INJ 1,250 MG in SODIUM CHLOR 0.9% 250 ML INJ 250 ML IV SCH ×2 (00:23→13:26)
[2018-03-24] MEDS: ACETAMINOPHEN/HYDROcodone 325 MG/10 MG TAB PO PRN ×3 (03:42→13:25)
[2018-03-24] MEDS: SODIUM CHLORIDE 0.9% FLUSH 10 ML FLUSH IV FLUSH SCH (08:29)
[2018-03-24] MEDS: THIAMINE HCL 100 MG TAB PO SCH (08:29)
[2018-03-24] MEDS: HEPARIN SODIUM - SQ 10,000 UNITS/ML VIAL SQ SCH (08:30)
[2018-03-24 08:39] VITALS: BP 131/68; PULSE 70; RESP 20; TEMP 98.5; O2SAT 97
--- NOTE | 2018-03-24 08:46 | HHI.PR ---
Subjective Remarks afebrile, feeling better wanting to go home "need to get out of here" no diarrhea, good po, no abdominal pain Objective Vitals Vital Signs Date Time Temp Pulse Resp B/P (MAP) Pulse Ox O2 Delivery O2 Flow Rate FiO2 03/24/18 04:42 18 03/24/18 00:20 98.4 79 18 129/72 (91) 96 03/23/18 16:00 98.5 69 16 116/55 (75) 95 03/23/18 12:00 98.9 68 18 160/79 (106) 94 I/O 03/23/18 03/23/18 03/23/18 03/24/18 03/24/18 03/24/18 07:00 15:00 23:00 07:00 15:00 23:00 Intake Total 250 ml Balance 250 ml IV Total 250 ml # Voids 3 Result Diagram: 03/20/18 1740 03/22/18 0657 Imaging Last Impressions Lower Extremity CT 03/19/18 0000 Signed Impressions: CONCLUSION: 1. Soft tissue swelling particularly around the medial malleolus. No radiopaqu e foreign body observed. Objective Remarks awake and alert, no acute distress, afebrile anicteric lungs- no rales regular rhythm abdomen soft right LE- erythema much improved , scratchedmarks/wounds superficial, dry, no surrounding induration good peripheral pulses, no calf swelling or tenderness A/P Problem List: (1) Cat bite involving extremity (2) Worm infestation ICD Code: B83.9 - Helminthiasis, unspecified (3) Worms in stool ICD Code: B83.9 - Helminthiasis, unspecified (4) Cellulitis of leg, left ICD Code: L03.116 - Cellulitis of left lower limb Assessment and Plan 47-year-old female with Feral cath bite with Cellulitis left lower extremity- clinically improving Currently on Invanz and vancomycin per ID - d/w pharmacy cultures- negative so far rabies IG vaccine shots- scheduled doses per ID recommendation day dose- 2nd dose due 03/25- 3rd dose- in 21 days can get it from health department- CM to assist will confirm with ID + stool eosinophilia patient has no complains- no diarrhea- good po Stool for ova and parasite pending- no growth so far GI work up - colonoscopy- can be done as OP Alcohol abuse- counselled - n Continue with CIWA protocol, rally pack DVT prophylaxis: Heparin d/w patient- wanting to go home CM requested to yanira with ff up with health department for rabies vaccination Mamadou Vincent MD Mar 24, 2018 08:46
[2018-03-24] MEDS ORDERED: ERTAPENEM 1,000 MG/NS 100 ML IV SCH ×2 (09:00)
[2018-03-24 11:31] LABS: CREATININE 0.46 MG/DL (0.50-1.00)
[2018-03-24 11:49] VITALS: BP 123/66; PULSE 85; RESP 20; TEMP 98.4; O2SAT 97
--- NOTE | 2018-03-24 14:06 | HHI.PR ---
Addendum to Inpatient Note Addendum Reason: Additional Documentation Additional Information Chart review documentation Patient dw : she would like to go home mone. Leg looks remarkably improved. Ok to DC home on Oral augmentin and Oral levaquin for total of 10 days. Referral to [facility]. Will sign off please call back if any change in clinical condition or questions. Autumn Man MD Mar 24, 2018 14:06
[2018-03-24] MEDS ORDERED: LEVA500T33 PO (15:30)
[2018-03-24] MEDS ORDERED: AUGM875T3 PO (15:31)
[2018-03-24 15:32] VITALS: BP 143/76; PULSE 79; RESP 20; TEMP 98.8; O2SAT 97
[2018-03-24] MEDS ORDERED: HYDR-3583 PO (16:13)
--- NOTE | 2018-03-24 18:23 | HHI.DS ---
Discharge Summary Admission Date Mar 18, 2018 at 23:35 Discharge Date: Mar 24, 2018 Admitting Diagnosis femi bite cellulitis treated for rabies exposure (1) Cat bite involving extremity Diagnosis: Principal (2) Worm infestation ICD Code: B83.9 - Helminthiasis, unspecified (3) Worms in stool ICD Code: B83.9 - Helminthiasis, unspecified (4) Cellulitis of leg, left ICD Code: L03.116 - Cellulitis of left lower limb Procedures none Brief History - From Admission 47-year-old female with no significant past medical history presents to the emergency department for the evaluation of a cat bite. The patient reports approximately 8:30 PM on the night of 03/17 she was attacked by a feral cat. She reports the cat bit her and scratched her on her left lower extremity. She cleaned the wounds with soap and water and hydrogen peroxide and noticed minimal swelling that evening. The following day, the patient noticed that her leg was extremely swollen and exquisitely tender to touch. It is surrounded with erythema and there are multiple puncture wounds on the anterior portion of the left lower extremity. She denies any fever/chills. No chest pain or shortness of breath. No abdominal pain. No nausea/vomiting/diarrhea. CBC/BMP: 03/20/18 1740 03/24/18 1030 Significant Findings Laboratory Tests Test 03/22/18 06:57 03/23/18 00:20 03/24/18 10:30 Creatinine 0.46 MG/DL (0.50-1.00) Imaging Last Impressions Lower Extremity CT 03/19/18 0000 Signed Impressions: CONCLUSION: 1. Soft tissue swelling particularly around the medial malleolus. No radiopaqu e foreign body observed. PE at Discharge awake and alert, no acute distress, afebrile anicteric lungs- no rales regular rhythm abdomen soft right LE- erythema much improved , scratchedmarks/wounds superficial, dry, no surrounding induration good peripheral pulses, no calf swelling or tenderness Pt update on day of discharge afebrile up and ambulating wund dry- no drainage Pt Condition on Discharge: Stable Discharge Disposition: Discharge Home Discharge Time: <= 30 minutes Discharge Instructions DIET: Follow Instructions for: As Tolerated, No Restrictions Activities you can perform: Weight Bearing as Aaron Follow up Referrals: PCP Follow-up - 03/25/18 with [facility] New Medications: Amoxicillin-Clavulanate (Augmentin) 875-125 Mg Tab 1 TAB PO BID for Infection for 10 Days, #20 TAB 0 Refills Levofloxacin (Levaquin) 500 Mg Tablet 500 MG PO DAILY for Infection for 10 Days, #10 TAB 0 Refills Hydrocodone/Acetaminophen (Hydrocodone-Acetamin 10-325 mg) 10 Mg-325 Mg Tablet 1 TAB PO Q6 PRN for pain 6-10, #28 TAB 0 Refills Mamadou Vincent MD Mar 24, 2018 18:23
[2018-03-25] MEDS ORDERED: PHARMACY ORDERED LAB ONE (01:45)
[2018-03-25] MEDS ORDERED: RABIES VACCINE CHICK EMB INJ 2.5 UNITS/ML SYR IM ONE (19:15)
== END 2018-03-24 17:41 | disposition home or self-care (01) | DRG 603 ==
LOC: NEPE 18:27 → NEDA 23:22 → OBSVTOIN 23:35 → NEDH 03-19 03:42 → N03A 03-19 07:31 → N03B 03-19 16:57 → N05A 03-20 16:55
PROVIDERS: ADMIT Internal Medicine; ATTEND Internal Medicine
DX: L03.116 Cellulitis of left lower limb (principal); A28.1 Cat-scratch disease; D72.1 Eosinophilia; F10.10 Alcohol abuse, uncomplicated; F17.210 Nicotine dependence, cigarettes, uncomplicated; B83.9 Helminthiasis, unspecified; Z20.3 Contact with and (suspected) exposure to rabies; H91.93 Unspecified hearing loss, bilateral; W55.01XA Bitten by cat, initial encounter
CPT/HCPCS: 73701; 76937; 80048; 80053; 80074; 80202; 82565; 85025; 86140; 87040; 87205; 87207; 87328; 87329; 87389; 90375; 90471; 90675; 96361; 96365; 96366; 96372; 96375; G0475; J0295; J1170; J1335; J1644; J2060; J2185; J2270; J3370; J7030; J7050; Q9967